=== PATIENT | male | born 1970 ===

== ENCOUNTER 2019-03-06 13:08 | Outpatient (CLI) | payer SELFPAY | END 2019-03-06 13:09 | disposition home or self-care (01) | LOC: C.LAB 13:08 | DX: E11.9 Type 2 diabetes mellitus without complications (principal); D64.9 Anemia, unspecified; E03.9 Hypothyroidism, unspecified; M06.9 Rheumatoid arthritis, unspecified; N39.0 Urinary tract infection, site not specified; E78.00 Pure hypercholesterolemia, unspecified ==